=== PATIENT | male | born 1960 | race Caucasian/White ===

== ENCOUNTER 2024-05-05 15:20 | Emergency (ER) | payer MEDICARE, SELFPAY ==
[2024-05-05] VITALS (22 sets, daily range): BP systolic 99–123; BP diastolic 65–75; PULSE 96–124; TEMP 36.7–37.6; O2SAT 91–98; BMI 23.9
--- NOTE | 2024-05-05 16:08 | XR_ITS ---
The [address] [address] Patient Name: KARLEE CHEN MRN: [id number] date: 1960 Sex: M Assigned Patient Location: ER Current Patient Location: ED.MAIN Accession/Order Number: [id number] Exam Date: 05/05/2024 16:30 Report Date: 05/05/2024 17:36 At the request of: TARIQ READ Procedure: XR acute abdomen series EXAM: XR acute abdomen series HISTORY: EGD today, vomiting COMPARISON: None. TECHNIQUE: Upright chest x-ray, flat and upright abdomen KUB FINDINGS: Chest x-ray demonstrates Ill-defined airspace density left mid lower lung field consistent with inflammatory infiltrate/pneumonia. Left apical lung and right lung appear clear. Normal heart size and mediastinal contour. No pleural effusion or pneumothorax thorax or pneumomediastinum. Surgical clips in the lower chest epigastric area. Abdominal films demonstrate scattered air-fluid levels the upright view mildly prominent bowel loops left upper quadrant. Bowel gas pattern otherwise unremarkable. No free air. No pneumatosis. Surgical clip epigastric area. Stool noted in the right colon. XR/XR acute abdomen series IMPRESSION: 1. Chest x-ray demonstrates extensive left mid and lower lung infiltrate consistent with pneumonia. 2. Abdominal films without pneumoperitoneum on pneumatosis. There are prominent bowel loops left upper quadrant and scattered air-fluid levels. No evidence of bowel obstruction. 3. No pneumothorax or pneumomediastinum on chest x-ray. Electronically authenticated by: ELVIS GUAN Date: 05/05/2024 17:36
--- NOTE | 2024-05-05 16:11 | ED.GENADUL1 ---
HPI HPI - General Adult General Chief complaint: Nausea/Vomiting/Diarrhea Stated complaint: vomitting blood Time Seen by Provider: 05/05/24 16:05 Source: patient Mode of arrival: walk-in Limitations: no limitations History of Present Illness HPI narrative: Patient is a 63-year-old male who presents to the emergency department for vomiting for the last 5 hours. Patient had an EGD with biopsy done with GI at [facility] at 1045 this morning. He states he was discharged around 11 AM, he has been vomiting every 15 minutes since the procedure. He drove home to [place] and his daughter called Dr. Hernández's office who instructed the patient to go to the ER for an IV. Patient has no abdominal pain. He has not had any fevers but has had chills that he developed this afternoon. He has not had any recent illness or urinary symptoms. He states multiple biopsies were taken from the stomach, he states with his emesis he has seen flecks of blood as well. Related Data Previous Rx's ?Medication ?Instructions ?Recorded levofloxacin 750 mg tablet 750 mg PO DAILY 10 days #10 tabs 05/05/24 ondansetron 4 mg disintegrating 4 mg PO Q6H PRN nausea and 05/05/24 tablet vomiting #12 tabs Allergies Allergy/AdvReac Type Severity Reaction Status Date / Time Penicillins AdvReac Intermediate Unknown Verified 05/05/24 15:35 Opioid HPI Opioid Management Most Recent Opioid Data: No Data to Display Review of Systems ROS Constitutional Reports: chills; Denies: fever Ears, nose, mouth, and throat Denies: throat pain or nasal congestion Respiratory Denies: shortness of breath Gastrointestinal Reports: nausea and vomiting; Denies: abdominal pain or diarrhea Musculoskeletal Denies: back pain Integumentary/Breast Denies: rash Neurological Denies: numbness in extremities or weakness in extremities Hematologic/Lymphatic Denies: easy bruising or easy bleeding PFSH PFSH Social History Little interest or pleasure in doing things: not at all Feeling down, depressed, or hopeless: not at all Exam Narrative Exam Narrative: Gen.: Awake, alert, in no distress Head: Normocephalic, atraumatic ENT: Moist mucous membranes Respiratory: No respiratory distress, lungs clear bilaterally Cardio: Tachycardic Gastrointestinal: Abdomen is soft, nondistended and nontender to palpation Extremities: Moves extremities equally Psych: Normal mood and affect Neuro: No focal neuro deficit Skin: Warm, dry, intact Constitutional Vital Signs, click to edit/add: Last Vital Signs Temp 99.6 F 05/05/24 17:48 Pulse 100 H 05/05/24 18:08 Resp 24 H 05/05/24 18:08 BP 118/72 05/05/24 18:08 Pulse Ox 96 05/05/24 18:08 O2 Del Method Room Air 05/05/24 18:08 Course Vital Signs Vital signs: Vital Signs Temperature 98.1 F 05/05/24 15:36 Pulse Rate 124 H 05/05/24 15:36 Respiratory Rate 18 05/05/24 15:36 Blood Pressure 114/67 05/05/24 15:36 Pulse Oximetry 94 L 05/05/24 15:36 Oxygen Delivery Method Room Air 05/05/24 15:36 Temperature 99.6 F 05/05/24 17:48 Pulse Rate 100 H 05/05/24 18:08 Respiratory Rate 24 H 05/05/24 18:08 Blood Pressure 118/72 05/05/24 18:08 Pulse Oximetry 96 05/05/24 18:08 Oxygen Delivery Method Room Air 05/05/24 18:08 Medical Decision Making MDM Narrative Medical decision making narrative: Patient found to be tachycardic initially, however this resolved with IV fluids. He had no complaints of chest pain or shortness of breath in the ER, although he did report feeling chills. Abdominal x-rays show no evidence of free air or perforation in the abdomen, however there is a right left lower lobe infiltrate noted and the patient will be treated for pneumonia. He is hemodynamically stable with no hypotension, fevers or persistent tachycardia. He has a normal white blood cell count, unremarkable electrolytes and normal lactic acid. I discussed the case with Dr. Hernández for GI who performed the procedure earlier today at [facility]. He did not have any further recommendations for the patient from a GI standpoint, patient has not had any vomiting in the ER. He was reexamined by attending physician prior to discharge and is in no distress. Return to the ER if symptoms change or worsen. Levaquin and Zofran given for home. Cardiac monitoring at time of discharge shows the patient has pulse oximetry 97% on room air with blood pressure 118/72 and a heart rate of 101. SHARED APC VISIT, PHYSICIAN ATTESTATION: [id number] I performed a substantive part of the MDM during the patient?s E/M visit. I personally evaluated and examined the patient. I personally made or approved the documented management plan and acknowledge its risk of complications. Medical Records Medical records reviewed: Yes I reviewed the patient's medical records Lab Data Lab results reviewed: Yes I reviewed the patient's lab results Labs: Lab Results 05/05/24 Range/Units 15:45 WBC 6.3 (4.0-11.0) 10^3/uL RBC 4.87 (4.70-6.10) 10^6/uL Hgb 14.4 (14.0-18.0) g/dL Hct 43.4 (42.0-54.0) % MCV 89.1 (80.0-94.0) fL MCH 29.6 (25.9-34.0) pg MCHC 33.2 (29.9-35.2) g/dL RDW 14.6 (11.0-15.0) % Plt Count 266 (150-450) 10^3/uL MPV 8.9 L (9.5-13.5) fL Seg Neuts % (Manual) 83.0 H (43.0-75.0) Band Neutrophils % 4.0 (0-5) % Lymphocytes % (Manual) 8.0 L (20.5-60.0) % Monocytes % (Manual) 5.0 (1.7-12.0) % Eosinophils % (Manual) 0.0 L (0.9-7.0) % Basophils % (Manual) 0.0 L (0.2-2.0) % Neutrophils # (Manual) 5.22 (1.4-6.5) 10^3/uL Band Neutrophils # 0.3 (0.0-0.3) 10^3/uL Lymphocytes # (Manual) 0.50 L (1.20-3.80) 10^3/uL Monocytes # (Manual) 0.31 (0.30-0.80) 10^3/uL Eosinophils # (Manual) 0.00 (0.00-0.70) 10^3/uL Basophils # (Manual) 0.00 (0.00-0.10) 10^3/uL PT 10.3 (9.0-11.6) sec INR 0.97 Sodium 141 (136-145) mmol/L Potassium 4.0 (3.5-5.1) mmol/L Chloride 102 (98-107) mmol/L Carbon Dioxide 25.6 (21.0-32.0) mmol/L Anion Gap 17.4 BUN 15.0 (7.0-18.0) mg/dL Creatinine 1.15 (0.70-1.30) mg/dL Est GFR ( Amer) >60 (>=60 mL/min/1.73m^2) Est GFR (Non-Af Amer) >60 (>=60 mL/min/1.73m^2) BUN/Creatinine Ratio 13.0 Glucose 106 (74-106) mg/dL Lactate 1.7 (0.4-2.0) mmol/L Calcium 8.7 (8.5-10.1) mg/dL Total Bilirubin 1.0 (0.2-1.0) mg/dL AST 60 H (15-37) U/L ALT 39 (16-63) U/L Alkaline Phosphatase 96 (46-116) U/L Total Protein 6.5 (6.4-8.2) g/dL Albumin 3.5 (3.4-5.0) g/dL Globulin 3.0 g/dL Albumin/Globulin Ratio 1.2 Imaging Data Abdominal x-ray: Attestation: I have reviewed the pertinent imaging results. Radiologist's impression: ITS Impressions Chest/Abdomen X-ray 05/05/24 16:08 IMPRESSION: 1. Chest x-ray demonstrates extensive left mid and lower lung infiltrate consistent with pneumonia. 2. Abdominal films without pneumoperitoneum on pneumatosis. There are prominent bowel loops left upper quadrant and scattered air-fluid levels. No evidence of bowel obstruction. 3. No pneumothorax or pneumomediastinum on chest x-ray. Electronically authenticated by: ELVIS GUAN Date: 05/05/2024 17:36 ECG Data Attestation: I personally reviewed and interpreted this ECG as follows: (Sinus tachycardia at a rate of 124, no acute ST elevation or ectopy. EKG reviewed by attending physician) Discharge Plan Discharge Chief Complaint: Nausea/Vomiting/Diarrhea Clinical Impression: Nausea and vomiting, Pneumonia Patient Disposition: Home, Self-Care Time of Disposition Decision: 18:04 Condition: Good Prescriptions / Home Meds: New levofloxacin 750 mg tablet 750 mg PO DAILY 10 Days Qty: 10 0RF ondansetron 4 mg tablet,disintegrating 4 mg PO Q6H PRN (Reason: nausea and vomiting) Qty: 12 0RF Print Language: Malagasy Instructions: Acute Nausea and Vomiting (ED), Pneumonia (ED) Referrals: Physician,Non-Staff, [Physician] - 1 week Discharge Date/Time: 05/05/24 18:25
[2024-05-05 16:17] LABS: Hematocrit 43.4 % (42.0-54.0); Hemoglobin 14.4 g/dL (14.0-18.0); Mean Corpuscular HGB Conc 33.2 g/dL (29.9-35.2); Mean Corpuscular Hemoglobin 29.6 pg (25.9-34.0); Mean Corpuscular Volume 89.1 fL (80.0-94.0); Mean Platelet Volume 8.9 fL (9.5-13.5); Platelet Count 266 10^3/uL (150-450); Red Blood Count 4.87 10^6/uL (4.70-6.10); Red Cell Distribution Width 14.6 % (11.0-15.0); White Blood Count 6.3 10^3/uL (4.0-11.0)
[2024-05-05] MEDS: ONDANSETRON PF 4 MG/2 ML VIAL IV (16:20)
[2024-05-05] MEDS: 0.9 % SODIUM CHLORIDE 1,000 ML 999 ML IV (16:21)
[2024-05-05 16:26] LABS: INR 0.97; Prothrombin Time 10.3 sec (9.0-11.6)
[2024-05-05 16:29] LABS: Lactate/Lactic Acid 1.7 mmol/L (0.4-2.0)
[2024-05-05 16:31] LABS: Band Neutrophils Absolute 0.3 10^3/uL (0.0-0.3); Segmented Neut Absolute Manual 5.22 10^3/uL (1.4-6.5)
[2024-05-05 16:32] LABS: Monocytes Absolute Manual 0.31 10^3/uL (0.30-0.80)
[2024-05-05 16:36] LABS: Alanine Aminotransferase 39 U/L (16-63); Albumin Globulin Ratio 1.2; Albumin Level 3.5 g/dL (3.4-5.0); Alkaline Phosphatase 96 U/L (46-116); Anion Gap 17.4; Aspartate Amino Transferase 60 U/L (15-37); Calcium 8.7 mg/dL (8.5-10.1); Carbon Dioxide 25.6 mmol/L (21.0-32.0); Chloride 102 mmol/L (98-107); Estimated GFR (African America >60 (>=60 mL/min/1.73m^2); Estimated GFR (Non-African Ame >60 (>=60 mL/min/1.73m^2); Glucose 106 mg/dL (74-106); Sodium 141 mmol/L (136-145); Total Protein 6.5 g/dL (6.4-8.2)
--- NOTE | 2024-05-05 17:14 | ECG_ITS ---
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
== END 2024-05-05 18:25 | disposition home or self-care (01) ==
PROVIDERS: Physician Assistant; Emergency Provider Emergency Medicine; Family Provider Family Medicine; PCP Family Medicine
DX: J18.9 Pneumonia, unspecified organism (principal); R11.2 Nausea with vomiting, unspecified; Z98.890 Other specified postprocedural states
CPT/HCPCS: 36415; 74022; 80053; 83605; 85007; 85027; 85610; 93005; 96361; 96374; 99285; J2405